=== PATIENT | male | born 1995 | race Caucasian/White ===

== ENCOUNTER 2017-01-09 03:13 | Emergency (ER) | payer OTHER ==
[2017-01-09 03:30] VITALS: BP 129/82; PULSE 85; RESP 16; TEMP 98.1; O2SAT 94
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
== END 2017-01-09 03:45 | disposition home or self-care (01) ==
PROC: 0HQEXZZ Repair Left Lower Arm Skin, External Approach (ICD-10-PCS; principal; 2017-01-09)
DX: S61.512A Laceration without foreign body of left wrist, initial encounter (principal); V18.4XXA Pedal cycle driver injured in noncollision transport accident in traffic accident, initial encounter; Y92.410 Unspecified street and highway as the place of occurrence of the external cause